=== PATIENT | male | born 1970 | race Caucasian/White ===

== ENCOUNTER 2018-09-22 06:14 | Inpatient (IN) | payer BC ==
[~2018-09-22] VITALS: Ht 15.2 cm; Wt 88.0 kg
[2018-09-22] MEDS ORDERED: SIMV40TA3 PO (06:30)
[2018-09-22] MEDS ORDERED: ATEN100T PO (06:30)
[2018-09-22] MEDS ORDERED: OXYC30TA66 PO (06:30)
[2018-09-22] MEDS ORDERED: ALLO300T PO (06:30)
[2018-09-22] MEDS ORDERED: OXYC1TAB7 PO (06:30)
[2018-09-22] MEDS ORDERED: GEMF600T4 PO (06:30)
[2018-09-22] MEDS ORDERED: ONDANSETRON 2MG/ML, 2ML ONE (06:32)
[2018-09-22] MEDS ORDERED: MORPHINE SULFATE 4 MG/ML, 1ML ONE ×4 (06:33→13:15)
[2018-09-22] MEDS: MORPHINE SULFATE 4 MG/ML, 1ML IVPush PRN ×2 (06:34→07:23)
[2018-09-22] MEDS ORDERED: ONDANSETRON ODT 4 MG PO ONE (07:00)
[2018-09-22] MEDS ORDERED: SODIUM CHLORIDE FLUSH 10ML SYR IVF ONE (07:00)
[2018-09-22] MEDS ORDERED: ETOMIDATE 20 MG/10 ML ONE (07:51)
[2018-09-22] MEDS ORDERED: ETOMIDATE 20 MG/10 ML IVPush ONE (08:30)
[2018-09-22 10:00] VITALS: BP 114/64
[2018-09-22] MEDS: morphine SULFATE 10 MG/ML, 1ML IVPush PRN ×4 (10:30→21:35)
[2018-09-22] MEDS ORDERED: DOCUSATE 100 MG CAPSULE PO PRN (11:00)
[2018-09-22] MEDS ORDERED: BISACODYL 10 MG SUPP PR PRN (11:00)
[2018-09-22] MEDS ORDERED: DIPHENHYDRAMINE 25 MG CAPSULE PO PRN (11:00)
[2018-09-22] MEDS ORDERED: POLYETHYLENE GLYCOL 17 GM PACKET PO PRN (11:00)
[2018-09-22 11:27] LABS: BASOPHILS # (AUTO) 0.02 x10^3/uL (0-0.1); BASOPHILS % (AUTO) 0 % (0-1); EOSINOPHILS # (AUTO) 0.07 x10^3/uL (0-0.4); EOSINOPHILS % (AUTO) 1 % (1-7); LYMPHOCYTES # (AUTO) 1.15 x10^3/uL (1-3.4); LYMPHOCYTES % (AUTO) 13 % (22-44); MD NO; MEAN CORPUSCULAR HEMOGLOBIN 27.5 pg (27.5-34.5); MEAN CORPUSCULAR HGB CONC 33.1 g/dL (33.2-36.2); MEAN CORPUSCULAR VOLUME 82.9 fL (81-97); MEAN PLATELET VOLUME 8.9 fL (7.4-10.4); MONOCYTES # (AUTO) 0.74 x10^3/uL (0.2-0.8); MONOCYTES % (AUTO) 9 % (2-9); NEUTROPHILS # (AUTO) 6.58 x10^3/uL (1.8-6.8); NEUTROPHILS % (AUTO) 77 % (42-75); PLATELET COUNT 190 x10^3/uL (130-400); RED BLOOD COUNT 3.94 x10^6/uL (4.38-5.82); RED CELL DISTRIBUTION WIDTH 16.5 % (9.4-14.8)
[2018-09-22 11:34] LABS: INTERNATIONAL NORMALIZED RATIO 1.04 (0.93-1.1); PROTHROMBIN TIME 10.7 Seconds (9.6-11.5)
[2018-09-22 11:36] LABS: ALBUMIN 3.2 g/dL (3.4-5.0); ANION GAP 6 mmol/L (5-15); CALCIUM 7.5 mg/dL (8.5-10.1); CHLORIDE 113 mmol/L (98-107); CREATININE 1.31 mg/dL (0.7-1.3)
[2018-09-22] MEDS: HEPARIN 5,000 UNITS/ML, 1ML SQ SCH ×2 (13:18→21:36)
[2018-09-22 13:29] VITALS: BP 116/67
[2018-09-22] MEDS: SODIUM CHLORIDE 0.9% 1,000 ML IV SCH ×2 (14:00→19:07)
[2018-09-22] MEDS ORDERED: SODIUM CHLORIDE 0.9% 1,000 ML IV SCH (14:00)
[2018-09-22] MEDS: ONDANSETRON 2MG/ML, 2ML IVPush PRN (16:41)
[2018-09-22] MEDS: OXYcodone IR 5MG TABLET PO PRN ×2 (19:06→23:27)
[2018-09-22 19:59] VITALS: BP 129/82
[2018-09-22] MEDS ORDERED: ZOLPIDEM 10MG TABLET PO PRN (22:00)
[2018-09-23] MEDS ORDERED: CEFAZOLIN PMX 1GM/50ML 50 ML IV SCH
[2018-09-23 01:53] VITALS: BP 121/73
[2018-09-23] MEDS: morphine SULFATE 10 MG/ML, 1ML IVPush PRN ×4 (02:03→15:07)
[2018-09-23] MEDS: ONDANSETRON 2MG/ML, 2ML IVPush PRN ×4 (02:03→21:49)
[2018-09-23] MEDS: SODIUM CHLORIDE 0.9% 1,000 ML IV SCH ×2 (02:53→11:52)
[2018-09-23] MEDS: OXYcodone IR 5MG TABLET PO PRN ×2 (04:43→09:00)
[2018-09-23] MEDS: HEPARIN 5,000 UNITS/ML, 1ML SQ SCH ×3 (04:44→21:49)
[2018-09-23 05:51] LABS: CHLORIDE 107 mmol/L (98-107)
[2018-09-23 05:53] LABS: BASOPHILS # (AUTO) 0.02 x10^3/uL (0-0.1); BASOPHILS % (AUTO) 0 % (0-1); EOSINOPHILS # (AUTO) 0.07 x10^3/uL (0-0.4); EOSINOPHILS % (AUTO) 1 % (1-7); LYMPHOCYTES # (AUTO) 0.92 x10^3/uL (1-3.4); LYMPHOCYTES % (AUTO) 13 % (22-44); MD NO; MEAN CORPUSCULAR HEMOGLOBIN 27.7 pg (27.5-34.5); MEAN CORPUSCULAR HGB CONC 33.3 g/dL (33.2-36.2); MEAN PLATELET VOLUME 9.2 fL (7.4-10.4); MONOCYTES # (AUTO) 0.45 x10^3/uL (0.2-0.8); MONOCYTES % (AUTO) 7 % (2-9); NEUTROPHILS # (AUTO) 5.37 x10^3/uL (1.8-6.8); NEUTROPHILS % (AUTO) 79 % (42-75); PLATELET COUNT 182 x10^3/uL (130-400); RED BLOOD COUNT 3.88 x10^6/uL (4.38-5.82); RED CELL DISTRIBUTION WIDTH 16.4 % (9.4-14.8)
[2018-09-23 05:55] LABS: ANION GAP 7 mmol/L (5-15); CALCIUM 7.8 mg/dL (8.5-10.1); CREATININE 0.95 mg/dL (0.7-1.3)
[2018-09-23 08:25] VITALS: BP 112/72
[2018-09-23 13:21] VITALS: BP 155/73
[2018-09-23] MEDS ORDERED: FENTANYL PF 250 MCG/5ML ONE (17:18)
[2018-09-23] MEDS ORDERED: MIDAZOLAM 1 MG/ML, 2ML ONE (17:18)
[2018-09-23] MEDS ORDERED: CEFAZOLIN 1,000 MG ONE ×2 (17:20)
[2018-09-23] MEDS ORDERED: SODIUM CHLORIDE 0.9% PF 10ML ONE (17:20)
[2018-09-23] MEDS ORDERED: ROPIvacaine/PF 0.5%, 30 ML ONE ×2 (17:23)
[2018-09-23] MEDS ORDERED: BUPIVACAINE/PF 0.5% ONE (17:24)
[2018-09-23] MEDS ORDERED: LIDOCAINE/PF 1%, 30ML ONE (17:25)
[2018-09-23] MEDS ORDERED: MEPERIDINE/PF 25MG/0.5ML IVPush PRN (18:00)
[2018-09-23] MEDS ORDERED: hydrALAzine 20 MG/ML, 1ML IV PRN (18:00)
[2018-09-23] MEDS ORDERED: FENTANYL PF 100 MCG/2ML IV PRN (18:00)
[2018-09-23] MEDS ORDERED: ACETAMINOPHEN 325 MG TABLET PO PRN (18:00)
[2018-09-23] MEDS ORDERED: PROMETHAZINE 25 MG/ML, 1ML IM PRN ×2 (18:00)
[2018-09-23] MEDS ORDERED: MORPHINE SULFATE 4 MG/ML, 1ML IVPush PRN (18:00)
[2018-09-23] MEDS ORDERED: ONDANSETRON 2MG/ML, 2ML IV PRN (18:00)
[2018-09-23] MEDS ORDERED: PROMETHAZINE 25 MG/ML, 1ML IV PRN (18:00)
[2018-09-23] MEDS ORDERED: ONDANSETRON ODT 8 MG PO PRN (18:00)
[2018-09-23] MEDS ORDERED: LABETALOL 5MG/ML, 20ML IV PRN (18:00)
[2018-09-23] MEDS ORDERED: OXYcodone 5 MG/5 ML ORAL.SOL UDC PO PRN (18:00)
[2018-09-23] MEDS ORDERED: HYDROmorphone 1 MG/ML, 1ML IV PRN (18:00)
[2018-09-23] MEDS ORDERED: PROPOFOL 10 MG/ML, 20ML ONE (18:08)
[2018-09-23] MEDS ORDERED: ONDANSETRON 2MG/ML, 2ML ONE (18:35)
[2018-09-23] MEDS ORDERED: OXYcodone 5 MG/5 ML ORAL.SOL UDC ONE (19:19)
[2018-09-23] MEDS: OxyconTIN ER 15 MG TAB.ER PO SCH ×2 (21:00→22:51)
[2018-09-23] MEDS: SIMVASTATIN 40 MG TABLET PO SCH ×2 (21:00→22:52)
[2018-09-23] MEDS ORDERED: OxyconTIN ER 20 MG TAB.ER ONE (21:24)
[2018-09-23] MEDS ORDERED: OxyconTIN ER 10 MG TAB.ER ONE (21:24)
[2018-09-23] MEDS ORDERED: ALUMINUM/MAG/SIMETHICONE 30 ML UDC PO PRN (21:30)
[2018-09-23] MEDS ORDERED: MAGNESIUM HYDROXIDE 8%, 30ML UDC PO PRN (21:30)
[2018-09-23] MEDS ORDERED: BISACODYL 10 MG SUPP PR PRN (21:30)
[2018-09-23] MEDS ORDERED: SENNA/DOCUSATE TABLET PO PRN (21:30)
[2018-09-23] MEDS ORDERED: morphine SULFATE 10 MG/ML, 1ML IVPush PRN (21:36)
[2018-09-23] MEDS ORDERED: VANCOMYCIN PMX 1GM/200ML 200 ML IVPB ONE (22:00)
[2018-09-23] MEDS ORDERED: OXYcodone/APAP 5/325MG TABLET PO PRN (22:00)
[2018-09-23] MEDS ORDERED: morphine SULFATE 10 MG/ML, 1ML IV PRN (22:00)
[2018-09-23] MEDS: POTASSIUM CHLORIDE 20 MEQ in D5%-0.45% NACL 1,000 ML IV SCH (22:52)
[2018-09-23 23:44] VITALS: BP 132/72
[2018-09-24 03:01] VITALS: BP 134/79
[2018-09-24] MEDS: OXYcodone IR 5MG TABLET PO PRN ×2 (03:38→08:36)
[2018-09-24] MEDS: CEFAZOLIN PMX 1GM/50ML 50 ML IV SCH ×2 (03:38→11:29)
[2018-09-24] MEDS: ONDANSETRON 2MG/ML, 2ML IVPush PRN ×2 (04:46→16:00)
[2018-09-24] MEDS: ATENOLOL 100 MG TABLET PO SCH (04:47)
[2018-09-24] MEDS: HEPARIN 5,000 UNITS/ML, 1ML SQ SCH ×3 (04:47→22:36)
[2018-09-24 07:40] VITALS: BP 116/74
[2018-09-24] MEDS: GEMFIBROZIL 600 MG TABLET PO SCH (08:36)
[2018-09-24] MEDS: ALLOPURINOL 300 MG TABLET PO SCH (08:36)
[2018-09-24] MEDS: MULTIVITAMINS/MINERALS TABLET PO SCH (08:36)
[2018-09-24] MEDS: DOCUSATE 100 MG CAPSULE PO SCH ×2 (08:36→22:36)
[2018-09-24] MEDS: SODIUM CHLORIDE FLUSH 10ML SYR IVF SCH ×2 (08:36→22:43)
[2018-09-24] MEDS ORDERED: OxyconTIN ER 15 MG TAB.ER PO SCH (11:00)
[2018-09-24] MEDS: [UNRECOGNIZED DRUG - REMARK] MC SCH ×2 (11:00→18:00)
[2018-09-24] MEDS ORDERED: OxyconTIN ER 10 MG TAB.ER ONE (11:25)
[2018-09-24] MEDS: POTASSIUM CHLORIDE 20 MEQ in D5%-0.45% NACL 1,000 ML IV SCH (11:29)
[2018-09-24] MEDS ORDERED: PROMETHAZINE 25 MG/ML, 1ML IM PRN (11:30)
[2018-09-24] MEDS: OxyconTIN ER 15 MG TAB.ER PO SCH ×2 (11:52→22:37)
[2018-09-24] MEDS ORDERED: METOCLOPRAMIDE 5 MG/ML, 2ML IVPush PRN (12:00)
[2018-09-24 12:29] LABS: BASOPHILS # (AUTO) 0.02 x10^3/uL (0-0.1); BASOPHILS % (AUTO) 0 % (0-1); EOSINOPHILS % (AUTO) 0 % (1-7); LYMPHOCYTES # (AUTO) 0.55 x10^3/uL (1-3.4); LYMPHOCYTES % (AUTO) 8 % (22-44); MD NO; MEAN CORPUSCULAR HEMOGLOBIN 26.9 pg (27.5-34.5); MEAN CORPUSCULAR HGB CONC 32.8 g/dL (33.2-36.2); MEAN CORPUSCULAR VOLUME 82.1 fL (81-97); MEAN PLATELET VOLUME 8.3 fL (7.4-10.4); MONOCYTES % (AUTO) 7 % (2-9); NEUTROPHILS # (AUTO) 6.01 x10^3/uL (1.8-6.8); NEUTROPHILS % (AUTO) 85 % (42-75); PLATELET COUNT 198 x10^3/uL (130-400); RED BLOOD COUNT 3.84 x10^6/uL (4.38-5.82)
[2018-09-24 12:41] LABS: ANION GAP 6 mmol/L (5-15); CHLORIDE 107 mmol/L (98-107); CREATININE 0.95 mg/dL (0.7-1.3)
[2018-09-24 13:50] VITALS: BP 130/77
[2018-09-24 19:15] VITALS: BP 126/74
[2018-09-24] MEDS ORDERED: SIMVASTATIN 40 MG TABLET PO SCH (21:00)
[2018-09-24] MEDS: SIMVASTATIN 40 MG TABLET PO SCH (22:42)
[2018-09-25] MEDS: POTASSIUM CHLORIDE 20 MEQ in D5%-0.45% NACL 1,000 ML IV SCH (00:56)
[2018-09-25 03:42] VITALS: BP 120/72
[2018-09-25] MEDS: ATENOLOL 100 MG TABLET PO SCH (06:24)
[2018-09-25] MEDS: HEPARIN 5,000 UNITS/ML, 1ML SQ SCH ×2 (06:24→13:19)
[2018-09-25 07:20] VITALS: BP 123/74
[2018-09-25] MEDS: [UNRECOGNIZED DRUG - REMARK] MC SCH ×2 (07:52→10:55)
[2018-09-25] MEDS ORDERED: OxyconTIN ER 10 MG TAB.ER ONE (08:28)
[2018-09-25] MEDS: ALLOPURINOL 300 MG TABLET PO SCH (08:37)
[2018-09-25] MEDS: OxyconTIN ER 15 MG TAB.ER PO SCH (08:37)
[2018-09-25] MEDS: MULTIVITAMINS/MINERALS TABLET PO SCH (08:38)
[2018-09-25] MEDS: DOCUSATE 100 MG CAPSULE PO SCH (08:38)
[2018-09-25] MEDS: GEMFIBROZIL 600 MG TABLET PO SCH (08:38)
[2018-09-25] MEDS: SODIUM CHLORIDE FLUSH 10ML SYR IVF SCH (08:39)
[2018-09-25] MEDS ORDERED: GEMFIBROZIL 600 MG TABLET PO SCH (09:00)
[2018-09-25] MEDS ORDERED: ATENOLOL 100 MG TABLET PO SCH (09:00)
[2018-09-25] MEDS ORDERED: ALLOPURINOL 300 MG TABLET PO SCH (09:00)
[2018-09-25 10:41] VITALS: BP 123/74
[2018-09-25 14:10] VITALS: BP 110/75
[2018-09-25] MEDS ORDERED: OXYC5CAP2 PO (15:23)
== END 2018-09-25 17:01 | disposition home or self-care (01) | DRG 492 ==
LOC: ED 07:07 → EDIP 08:48 → 4NOR 09:42
PROVIDERS: ADMIT Internal Medicine; ATTEND Internal Medicine
PROC: 0SSFXZZ Reposition Right Ankle Joint, External Approach (ICD-10-PCS; 2018-09-22)
PROC: 0SSF04Z Reposition Right Ankle Joint with Internal Fixation Device, Open Approach (ICD-10-PCS; 2018-09-23)
PROC: 3E0T3BZ Introduction of Anesthetic Agent into Peripheral Nerves and Plexi, Percutaneous Approach (ICD-10-PCS; 2018-09-23)
PROC: 0QSJ04Z Reposition Right Fibula with Internal Fixation Device, Open Approach (ICD-10-PCS; principal; 2018-09-23 17:30)
DX: S82.61XA Displaced fracture of lateral malleolus of right fibula, initial encounter for closed fracture (principal); N17.0 Acute kidney failure with tubular necrosis; D64.9 Anemia, unspecified; S93.04XA Dislocation of right ankle joint, initial encounter; M10.9 Gout, unspecified; E78.5 Hyperlipidemia, unspecified; M54.5 Low back pain; I10 Essential (primary) hypertension; G89.4 Chronic pain syndrome; S82.62XA Displaced fracture of lateral malleolus of left fibula, initial encounter for closed fracture; S82.841A Displaced bimalleolar fracture of right lower leg, initial encounter for closed fracture; S93.431A Sprain of tibiofibular ligament of right ankle, initial encounter; W18.2XXA Fall in (into) shower or empty bathtub, initial encounter; X50.1XXA Overexertion from prolonged static or awkward postures, initial encounter; Y93.E1 Activity, personal bathing and showering
CPT/HCPCS: 27840; 36415; 76000; 80048; 82040; 85025; 85610; 93005; 96374; 99152; 99153; 99285; C1713; G0378; J0690; J1644; J2250; J2405; J2704; J2795; J3010; J3370; J3480; J3490; Q0162; J2270; J7030